=== PATIENT | female | born 1940 | race Caucasian/White ===

== ENCOUNTER 2020-07-07 11:12 | Emergency (ER) | payer MEDICARE ==
[~2020-07-07 11:12] MED LIST: ETODOLAC500 MG PO; KEFLEX250 MG PO; ROBAXIN500 MG PO
[2020-07-07 11:44] LABS: BASOPHIL 0.4 % (0-2); EOSINOPHIL 0.3 % (0-7); HCT 43.2 % (37.0-47.0); HGB 14.4 g/dl (12.5-16.0); LYMPHOCYTE 24.2 % (15-48); MCH 30.6 pg (25.0-31.0); MCHC 33.3 g/dL (32.0-36.0); MCV 91.7 fL (78.0-100.0); MONOCYTE 8.6 % (0-12); MPV 9.2 fL (6.0-9.5); NEUTROPHIL 66.2 % (41-80); NRBC 0; PLT 318 K/uL (150-400); RBC 4.71 M/uL (4.20-5.40); RDW 13.8 % (11.5-14.0); WBC 12.5 K/uL (4.0-10.5)
[2020-07-07 12:01] LABS: ALBUMIN 4.1 g/dL (3.4-5.0); BILIRUBIN - TOTAL 0.6 mg/dL (0.2-1.0); BUN/CREAT RATIO (CALC) 21.1 RATIO; CREATININE 0.95 mg/dL (0.51-0.95); GLOBULIN (CALCULATION) 4.4 g/dL; POTASSIUM 4.3 mmol/L (3.5-5.1); TOTAL PROTEIN 8.5 g/dL (6.4-8.2)
[2020-07-07 12:55] LABS: BILIRUBIN 2+ mg/dL (NEGATIVE); BLOOD 1+ Ery/uL (NEGATIVE); CLARITY CLEAR (CLEAR); COLOR YELLOW (YELLOW); GLUCOSE (U) NORMAL (NORMAL); LEUKOCYTES NEGATIVE Leu/uL (NEGATIVE); NITRITE POSITIVE (NEGATIVE); PROTEIN 1+ mg/dL (NEGATIVE); SPECIFIC GRAVITY 1.025 (1.001-1.030); UROBILINOGEN 0.2 mg/dL (0.2-1.0)
[2020-07-07 13:01] LABS: BACTERIA 4+; MUCOUS MODERATE; SQUAMOUS EPITHELIAL CELLS RARE
[2020-07-07] MEDS ORDERED: PROTONIX 40MG T40 MG PO (16:15)
[2020-07-07] MEDS ORDERED: ZOFRAN4 M1 PO (16:15)
[2020-07-07] MEDS ORDERED: CARAFATE1 GM PO (16:15)
[2020-07-07] MEDS ORDERED: CEFDINIR300 MG PO (16:15)
== END 2020-07-07 16:30 | disposition home or self-care (01) ==
LOC: FER 11:12
PROVIDERS: Emergency Medicine
DX: N39.0 Urinary tract infection, site not specified (principal); K27.3 Acute peptic ulcer, site unspecified, without hemorrhage or perforation; Z20.822 Contact with and (suspected) exposure to COVID-19
CPT/HCPCS: 36415; 80053; 81001; 83690; 84145; 85025; C9113; J0696; J1170; J2405; J7030; U0002

== ENCOUNTER 2021-06-06 12:45 | Emergency (ER) | payer MEDICARE ==
[~2021-06-06 12:45] MED LIST changes: +CARAFATE1 GM PO; +CEFDINIR300 MG PO; +PROTONIX 40MG T40 MG PO; +ZOFRAN4 M1 PO
[2021-06-07] MEDS ORDERED: ONDANSETRON ODT4 MG PO (15:59)
[2021-06-07] MEDS ORDERED: BACTRIM DS TAB1 EACH PO (15:59)
== END 2021-06-06 15:38 | disposition left against medical advice (07) ==
LOC: FER 12:45
DX: R53.1 Weakness (principal); R11.0 Nausea; Z53.29 Procedure and treatment not carried out because of patient's decision for other reasons
CPT/HCPCS: 99281

== ENCOUNTER 2021-06-07 13:09 | Emergency (ER) | payer MEDICARE ==
[2021-06-07 14:08] LABS: BILIRUBIN 1+ mg/dL (NEGATIVE); BLOOD NEGATIVE Ery/uL (NEGATIVE); CLARITY CLEAR (CLEAR); COLOR YELLOW (YELLOW); GLUCOSE (U) NORMAL (NORMAL); LEUKOCYTES TRACE Leu/uL (NEGATIVE); NITRITE NEGATIVE (NEGATIVE); PROTEIN NEGATIVE (NEGATIVE); SPECIFIC GRAVITY 1.015 (1.001-1.030)
[2021-06-07 14:33] LABS: BASOPHIL 0.2 % (0-2); EOSINOPHIL 0.2 % (0-7); HCT 39.2 % (37.0-47.0); HGB 13.6 g/dl (12.5-16.0); MCH 30.7 pg (25.0-31.0); MCHC 34.7 g/dL (32.0-36.0); MONOCYTE 18.6 % (0-12); NEUTROPHIL 40.5 % (41-80); NRBC 0; PLT 155 K/uL (150-400); RBC 4.43 M/uL (4.20-5.40); RDW 12.6 % (11.5-14.0); WBC 4.5 K/uL (4.0-10.5)
[2021-06-07 15:04] LABS: LYMPHOCYTE 40.3 % (15-48); MCV 88.5 fL (78.0-100.0)
[2021-06-07 15:07] LABS: ALBUMIN 3.5 g/dL (3.4-5.0); BILIRUBIN - TOTAL 0.4 mg/dL (0.2-1.0); CREATININE 1.05 mg/dL (0.51-0.95); GLOBULIN (CALCULATION) 3.7 g/dL; POTASSIUM 3.5 mmol/L (3.5-5.1); TOTAL PROTEIN 7.2 g/dL (6.4-8.2)
[2021-06-07 15:09] LABS: AMORPHOUS URATES CRYSTALS TRACE; BACTERIA TRACE
[2021-06-07] MEDS ORDERED: ONDANSETRON ODT4 MG PO (15:59)
[2021-06-07] MEDS ORDERED: BACTRIM DS TAB1 EACH PO (15:59)
== END 2021-06-07 19:10 | disposition home or self-care (01) ==
LOC: FER 13:09
PROVIDERS: Emergency Medicine
DX: I95.1 Orthostatic hypotension (principal); N39.0 Urinary tract infection, site not specified; R53.1 Weakness; F03.90 Unspecified dementia, unspecified severity, without behavioral disturbance, psychotic disturbance, mood disturbance, and anxiety; I10 Essential (primary) hypertension; E78.5 Hyperlipidemia, unspecified; Z79.899 Other long term (current) drug therapy
CPT/HCPCS: 36415; 71045; 80053; 81001; 84145; 84484; 85025; 87040; 93005; J7030; J7040

== ENCOUNTER 2021-10-23 18:05 | Emergency (ER) | payer MEDICARE ==
[~2021-10-23 18:05] MED LIST changes: +BACTRIM DS TAB1 EACH PO; +ONDANSETRON ODT4 MG PO
== END 2021-10-23 20:07 | disposition home or self-care (01) ==
LOC: FER 18:05
DX: S01.01XA Laceration without foreign body of scalp, initial encounter (principal); I10 Essential (primary) hypertension; Z23 Encounter for immunization; W01.190A Fall on same level from slipping, tripping and stumbling with subsequent striking against furniture, initial encounter; Y93.89 Activity, other specified; Y92.009 Unspecified place in unspecified non-institutional (private) residence as the place of occurrence of the external cause
CPT/HCPCS: 70450; 72125; 90471; 90715